=== PATIENT | female | born 1990 | race American Indian/Alaskan Native ===

== ENCOUNTER 2017-05-22 17:54 | Emergency (ER) | payer OTHER, BC ==
[2017-05-22 18:21] VITALS: BP 122/78
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
[2017-05-23] MEDS: FLEXERIL PO ONE (00:10)
[2017-05-23] MEDS: TYLENOL #3 PO ONE (00:10)
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
== END 2017-05-23 01:17 | disposition home or self-care (01) ==
LOC: ED 17:54
DX: R51 Headache (principal); M54.2 Cervicalgia; M54.9 Dorsalgia, unspecified; V49.49XA Driver injured in collision with other motor vehicles in traffic accident, initial encounter; Y93.9 Activity, unspecified; Y92.9 Unspecified place or not applicable; Y99.9 Unspecified external cause status
CPT/HCPCS: 70450; 72070; 72125; 81025